=== PATIENT | female | born 1935 | race Caucasian/White ===

== ENCOUNTER 2024-06-23 11:14 | Outpatient (REF) | payer MEDICARE, SELFPAY ==
[2024-06-23 11:59] LABS: Chloride* 97 mmol/L (96-114); Potassium* 3.5 mmol/L (3.6-5.1); Sodium* 138 mmol/L (135-149)
[2024-06-23 12:02] LABS: Anion Gap 5 mEq/L (7-15); Blood Urea Nitrogen* 35 mg/dL (7-30); Calcium* 9.7 mg/dL (8.4-10.6); Carbon Dioxide* 36 mmol/L (20-32); Creatinine* 0.8 mg/dL (0.5-1.5); Estimated Glomerular Filt Rate 71 ml/min; Glucose* 108 mg/dL (60-115)
[2024-06-23 12:04] LABS: Hemoglobin A1C* 5.8 % (0-5.6)
== END 2024-06-23 11:15 | disposition home or self-care (01) ==
LOC: NPINS 11:14
PROVIDERS: PCP Family Medicine; Visit Provider Family Medicine
DX: E87.6 Hypokalemia (principal); R73.03 Prediabetes
CPT/HCPCS: 80048; 83036

== ENCOUNTER 2024-09-03 11:36 | Outpatient (REF) | payer MEDICARE, SELFPAY ==
[2024-09-03 12:25] LABS: Chloride* 98 mmol/L (96-114); Potassium* 3.5 mmol/L (3.6-5.1); Sodium* 139 mmol/L (135-149)
[2024-09-03 12:28] LABS: Anion Gap 8 mEq/L (7-15); Blood Urea Nitrogen* 28 mg/dL (7-30); Carbon Dioxide* 33 mmol/L (20-32); Creatinine* 0.7 mg/dL (0.5-1.5); Estimated Glomerular Filt Rate 83 ml/min; Glucose* 118 mg/dL (60-115)
[2024-09-03 12:29] LABS: Calcium* 9.5 mg/dL (8.4-10.6)
== END 2024-09-03 11:37 | disposition home or self-care (01) ==
LOC: NPINS 11:36
PROVIDERS: PCP Family Medicine; Visit Provider Nurse Practitioner Gerontology
DX: E87.6 Hypokalemia (principal)
CPT/HCPCS: 80048

== ENCOUNTER 2024-09-11 09:38 | Outpatient (REF) | payer MEDICARE, SELFPAY ==
[2024-09-11 10:48] LABS: Basophils Absolute Auto 0.03 K/uL (0.00-0.30); Basophils Percent Auto 0.3 % (0.0-3.0); Eosinophils Absolute Auto 0.19 K/uL (0.00-0.50); Eosinophils Percent Auto 1.8 % (0.0-7.0); Hematocrit 40.1 % (33.0-51.0); Hemoglobin* 12.9 gm/dL (12.0-16.0); Immature Granulocytes Abs Auto 0.02 K/uL (0.00-0.30); Immature Granulocytes Pct Auto 0.2 %; Lymphocytes Percent Auto 17.4 % (20-44); Mean Corpuscular HGB Conc 32 gm/dL (32-36); Mean Corpuscular Hemoglobin 30 pg (26-34); Mean Corpuscular Volume 93 fL (80-100); Monocytes Percent Auto 6.3 % (0.0-11.0); Platelet Count* 483 K/uL (140-440); RDW Coefficient of Variation % 14.5 % (11.5-15.5); Red Blood Count 4.33 m/uL (4.00-5.20); White Blood Count* 10.33 K/uL (4.50-11.00)
[2024-09-11 10:52] LABS: Slide Review Reflex No
== END 2024-09-11 09:39 | disposition home or self-care (01) ==
LOC: NPINS 09:38
PROVIDERS: PCP Nurse Practitioner Gerontology; Visit Provider Nurse Practitioner Gerontology
DX: R11.10 Vomiting, unspecified (principal)
CPT/HCPCS: 85025

== ENCOUNTER 2024-11-25 18:16 | Outpatient (REF) | payer MEDICARE, SELFPAY ==
[2024-11-25 18:39] LABS: Bilirubin Urine Negative (Negative); Blood Urine Trace-intact (Negative); Color Urine Yellow (Yellow); Glucose Urine Negative (Negative); Ketones Urine Negative (Negative); Leukocyte Esterase Urine 1+ (Negative); Nitrite Urine Positive (Negative); Protein Urine 1+ (Negative); pH Urine 5.5 (5.0-8.5)
[2024-11-25 18:40] LABS: Appearance Urine Slightly Cloudy (Clear)
[2024-11-25 18:57] LABS: Bacteria Urine Many; Squamous Epithelial Cell Urine Few (None-Few)
== END 2024-11-25 18:17 | disposition home or self-care (01) ==
LOC: NPINS 18:16
PROVIDERS: Visit Provider Nurse Practitioner Gerontology
DX: R31.9 Hematuria, unspecified (principal)
CPT/HCPCS: 81001; 87086

== ENCOUNTER 2025-01-03 10:41 | Outpatient (CLI) | payer MEDICARE, SELFPAY ==
[2025-01-03 11:45] LABS: Appearance Urine Slightly Cloudy (Clear); Bilirubin Urine Negative (Negative); Blood Urine 2+ (Negative); Color Urine Yellow (Yellow); Glucose Urine Negative (Negative); Ketones Urine Negative (Negative); Leukocyte Esterase Urine 1+ (Negative); Nitrite Urine Positive (Negative); Protein Urine 2+ (Negative); Specific Gravity Urine 1.025 (1.000-1.030); Urobilinogen Urine 0.2 (0.2-1.0); pH Urine 6.5 (5.0-8.5)
[2025-01-03 11:59] LABS: Bacteria Urine Many; Squamous Epithelial Cell Urine Many (None-Few); WBC Urine 25-50 (0-5)
== END 2025-01-03 10:42 | disposition home or self-care (01) ==
LOC: LAB 10:45 → NPINS 11:17
PROVIDERS: Visit Provider Family Medicine
DX: R31.9 Hematuria, unspecified (principal)
CPT/HCPCS: 81001; 81003; 87086

== ENCOUNTER 2025-04-01 20:31 | Outpatient (REF) | payer MEDICARE, SELFPAY ==
[2025-04-01 20:58] LABS: Appearance Urine Clear (Clear)
--- OUTSIDE RECORDS SUMMARY | 2025-04-02 00:17 | XMS_ITS | Clinical Summary ---
Author Organization [facility] Address [address] [place] [address] Care Team Providers Care Nutrition Program Instructor Name Role Phone Hina Dwyer MD Primary Care Provider [phone] Source Comments [facility],non-[facility] Affiliates and Associated Physician Practices is amultiple site organization consisting of ambulatory clinics and hospital sitesin [place], [place], [place] and [place]. This disclosure is being madepursuant to the Care Everywhere program and may not contain all information available regarding this patient. Last updated 18.[facility] Allergies Active Allergy Reactions Criticality Noted Date Comments Amoxicillin-Pot Clavulanate Urticaria Medium 09/03/20 11 (abstracted from [facility] Everywhere) Penicillins 09/03/2011 03/24/93 Sulfa Antibiotics Rash Medium 03/05/2024 Medications * Be aware that medications may not be up to date on this document. Alwaysverify current medications with the patient. losartan (Cozaar) 25 MG tabletIndication s:Hypertension Take 1 (one) tablet by mouth once daily 90 tablet 3 4 Active hydroCHLOROthiaz hector (Hydrodiuril) 25 MG tabletIndication s:Edema Take 1 (one) tablet by mouth once daily 90 tablet 4 4 Active nystatin (Mycostatin) 340992 UNIT/GM powderIndication s:Cutaneous Candidiasis Apply to buttocks and groin 3 times daily Reasons: Skin Infection due to Nikky Yeast 4 Active Cholecalciferol (Vitamin D) 50 MCG (1999) capsuleIndicatio ns:Hypovitaminos is D Take 1 (one) capsule by mouth once daily 30 capsule 4 Active Active Problems Problem Noted Date Diagnosed Date Hypokalemia 03/18/2024 Weakness 03/18/2024 Dependent edema 02/28/2024 Age-related osteoporosis wit hout current pathological fracture 01/11/2022 Overview (02/25/2024): BMD 12/29/21 Vascular dementia without behavioral disturbance 02/01/2021 Overview (02/25/2024): 04/19/21 CT scan brain without contrast for w/u dementia 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 (AF LURIA, FLUZONE TRIVALENT; 6MO+) (IIV3) 06/27/2016,06/23/2015,06/22/2014,2011,06/05/2011,06/23/2010,07/19/2004 COVID PFIZER BIVALENT 12Y+ 30mcg/0.3ML 07/05/2022 Covid Pfizer primary Monoval ent 12+ yr 0.3ml 12/27/2021 Covid Pfizer primary monoval ent 12+ yr 0.3mL Purple cap 12/22/2020,12/01/2020 FLU VACCINE TRI IIV3 SPLIT I M (FLUVIRIN) 06/19/2010,07/23/2008,07/18/2007,2004 INFLUENZA [id number], HISTORIC VACCINE 07/07/2009 INFLUENZA VACCINE 07/24/2002 INFLUENZA VACCINE, ADJUVANTE D, QUADR. (FLUAD QUADRIVALENT; 65Y+) (AIIV4) 07/22/2023,07/05/2022 INFLUENZA VACCINE, HIGH-DOSE , QUADR. (FLUZONE HIGH-DOSE QUADRIVALENT; 65Y+), 0.7 ML (HD-IIV4) 06/15/2021 INFLUENZA VACCINE, QUADR. (A FLURIA, FLUZONE QUADRIVALENT; 6MO+) (IIV4) 06/16/2019 INFLUENZA VACCINE, QUADR. (F LUZONE; FLULAVAL; FLUARIX; AFLURIA QUADRIVALENT; 6MO+), 0.5 ML (IIV4) 06/17/2018,07/02/2017,06/22/2013 INFLUENZA VACCINE, TRIV. (FL UZONE; FLULAVAL; FLUARIX; AFLURIA TRIVALENT; 6MO+), 0.5 ML (IIV3) 06/21/2009 PNEUMOCOCCAL POLYSAC, ADULT 10/08/2016 Pneumococcal Pcv13 Conj 10/03/2015 TD (AGE 7-ADULT) 08/21/2007 ZOSTER VACCINE, LIVE 01/17/2012 iNFLUENZA VACCINE, RECOM-SHARP, QUADR. (FLUBLOCK QUADRIVALENT; 18Y+) (RIV4) 06/17/2018,07/02/2017,06/27/2016,2014,06/22/2014,06/22/2013 Family History Medical History Relation Name Comments Cancer - Breast Aunt maternal None Known Brother Status: d Alcohol abuse Daughter 1 recovering alc oholic Cancer Daughter 1 at age 35 None Known Daughter 1 Status: Alive None Known Daughter 2 Status: d None Known Daughter 3 Status: Alive None Known Daughter 4 Status: Alive Tuberculosis Father at age 41; Status: Cancer - Stomach Mother Status: Dec eased Alzheimer's Disease Sister 1 Diabetes Sister 1 Heart Disease Sister 1 None Known Sister 1 Status: Alive None Known Sister 2 Status: Alive None Known Sister 3 Status: Alive None Known Sister 4 Status: Alive Allergies Son None Known Son Status: Alive Relation Name Status Comments Aunt Brother Daughter 1 Daughter 2 Daughter 3 Daughter 4 Father Mother Sister 1 Sister 2 Sister 3 Sister 4 Son Social History Tobacco Use Types Packs/Day Years Used Date Smoking Tobacco: Never Passive Smoke Exposure: Never Smokeless Tobacco: Never Alcohol Use Standard Drinks/Week Comments No 0 (1 standard drink = 0.6 oz pur e alcohol) OASIS D0700: Social Isolation Answer Da te Recorded Frequency of experiencing loneliness or isolatio n Rarely 04/03/2024 OASIS A1250: Transportation Answer Date Recorded Lack of Transportation (Medical) No 04/03/2024 Lack of Transportation (Non-Medical) No 04/03/2024 Patient Unable or Declines to Respond No 04/03/2024 OASIS B1300: Health Literacy Answer Ean e Recorded Frequency of needing help to read materials from doctor or pharmacy Always 04/03/2024 AUDIT-C Answer Date Recorded Q1: How often do you have a drink containing alcohol? Never 03/17/2024 Q2: How many drinks containi ng alcohol do you have on a typical day when you are drinking? Patient does not drink Q3: How often do you have si x or more drinks on one occasion? Never 03/17/2024 Overall Financial Resource Strain (CARDIA) Answe r Date Recorded How hard is it for you to pa y for the very basics like food, housing, medical care, and heating? Not hard at all 03/17/2024 [facility] [place] [facility] Occupat ional Health - Occupational Stress Questionnaire Answer Date Recorded Do you feel stress - tense, restless, nervous, or anxious, or unable to sleep at night because your mind is troubled all the time - these days? Not at all 03/17/2024 Hunger Vital Sign Answer Date Recorded Within the past 12 months, y ou worried that your food would run out before you got the money to buy more. Never true 03/17/20 24 Within the past 12 months, t he food you bought just didn't last and you didn't have money to get more. Never true 03/17/2024 PRAPARE - Transportation Answer Date Re corded In the past 12 months, has l ack of transportation kept you from medical appointments or from getting medications? No 02/22 In the past 12 months, has l ack of transportation kept you from meetings, work, or from getting things needed for daily living? No 03/17/2024 Housing Stability Vital Sign Answer Ean e Recorded In the last 12 months, was t here a time when you were not able to pay the mortgage or rent on time? No 03/17/2024 In the last 12 months, how many places have you lived? 1 03/17/2024 In the last 12 months, was t here a time when you did not have a steady place to sleep or slept in a detention (including now)? No 03/17/2024 Comments No Sex and Gender Information Value Date Recorded Sex Assigned at Not on file Legal Sex Female 9:52 PM CDT Gender Identity Not on file Sexual Orientation Not on file Last Filed Vital Signs Vital Sign Reading Time Taken Comments Blood Pressure 130/70 04/03/2024 12:44 PM CDT Pulse 71 04/03/2024 12:44 PM CDT Temperature 36.7 C (98.1 F) 04/03/2024 12:44 PM CDT Respiratory Rate 16 04/03/2024 12:44 PM CDT Oxygen Saturation 97% 04/03/2024 12:44 PM CDT Inhaled Oxygen Concentration - - Weight 53.1 kg (117 lb) 03/24/2024 11:53 AM CDT Height 157.5 cm (5' 2) 03/24/2024 11:53 AM CDT Body Mass Index 21.4 03/24/2024 11:53 AM CDT Plan of Treatment Health Maintenance Due Date Last Done Comments HIB VACCINE (1 of 1 - Risk 1-dose series) 12/30/1936 MENINGOCOCCAL GROUPS A/C/Y/W VACCINE (1 - Risk 2-dose series) 1937 MENINGOCOCCAL (Group B) VACCINE SHARED DECISION-MAKING (1 of 4 - Increased Risk) 1945 ZOSTER VACCINE (2 of 3) 03/13/2012 01/17/2012 DTAP/TDAP/TD VACCINES (2 - Td or Tdap) 08/21/2017 08/21/2007 DIABETES RETINOPATHY SCREENING 02/28/2024 DIABETES-FOOT EXAM WITH MONOFILAMENT 02/28/2024 COVID-19 VACCINE ( season) 2024 07/05/2022, 12/27/2021, 07/04/2021, Additional history exists DIABETES-HGB A1C 08/21/2024 02/19/2024, 07/05/2023 DEPRESSION SCREENING 09/23/2024 11/18/2018 MEDICARE AWV CALENDAR YEAR 2024 11/18/2018 INFLUENZA VACCINE (#1) 2025 , 07/05/2022, 06/15/2021, Additional history exists Respiratory Syncytial Virus (RSV) Vaccine Pt: or over 60 yrs (1 - 1-dose 75+ series) 02/27/2026 Postponed from 2010 (Insurance Coverage) PNEUMOCOCCAL VACCINE 50+ Completed 10/08/2016, 09/23 BONE DENSITY TESTING Completed 12/29/2021 HEPATITIS B VACCINE Aged Out No longe r eligible based on patient's age to complete this topic HPV VACCINE Aged Out No longer eligi ble based on patient's age to complete this topic Insurance MANAGED MEDICARE ADV [facility] MANAGED MEDICARE ADV Advance Directives Documents on File Type Date Recorded Patient Floor Manager Expl anation Healthcare Power of Rehabilitation Therapy Aide 04/02/2024 10:49 AM SIGNED: 08/12/2019 Healthcare POA Activation 03/02/2024 11:16 AM DATE SIGNED 02/01/21 Healthcare Power of Rehabilitation Therapy Aide 03/07/2016 DURABLE POWER OF BOTTOM SCRUBBER FOR HEALTHCARE Healthcare Power of Rehabilitation Therapy Aide 11/23/2014 11:24 AM DATE SIGNED 11/11/14 Healthcare Power of Rehabilitation Therapy Aide 12/04/2011 1:06 PM DATED 11/21/11 * DNR - IF PULSELESS NO CPR, NO SHOCK (Latest Code Status on File) Date Activated Date Inactivated Comments 03/17/2024 4:09 PM 03/20/2024 8:54 PM Question Answer Comments : DO NOT discontinue a ny active orders without asking attending physician. Care Teams Nutrition Program Instructor Relationship Specialty Start Date End Date Hina Dwyer MD [address] [place] [address] [phone] PCP - General Family Medicine 03/05/24
== END 2025-04-01 20:32 | disposition home or self-care (01) ==
LOC: NPINS 20:31
PROVIDERS: Visit Provider Nurse Practitioner Gerontology
DX: R31.9 Hematuria, unspecified (principal); N39.0 Urinary tract infection, site not specified
CPT/HCPCS: 81001; 81003; 87086

== ENCOUNTER 2025-06-08 10:13 | Outpatient (REF) | payer MEDICARE, SELFPAY ==
[2025-06-08 11:24] LABS: Chloride* 96 mmol/L (96-114); Sodium* 136 mmol/L (135-149)
[2025-06-08 11:25] LABS: Potassium* 3.4 mmol/L (3.6-5.1)
[2025-06-08 11:26] LABS: Hematocrit* 38.6 % (33.0-51.0); Hemoglobin* 12.5 gm/dL (12.0-16.0); Immature Granulocytes Pct Auto 0.2 %; Mean Corpuscular HGB Conc 32 gm/dL (32-36); Mean Corpuscular Hemoglobin 30 pg (26-34); Mean Corpuscular Volume 91 fL (80-100); RDW Coefficient of Variation % 14.1 % (11.5-15.5); Red Blood Count* 4.24 m/uL (4.00-5.20); White Blood Count* 15.73 K/uL (4.50-11.00)
[2025-06-08 11:27] LABS: Blood Urea Nitrogen* 40 mg/dL (7-30); Creatinine* 1.0 mg/dL (0.5-1.5); Estimated Glomerular Filt Rate 54 ml/min
[2025-06-08 11:28] LABS: Anion Gap 7 mEq/L (7-15); Calcium* 10.0 mg/dL (8.4-10.6); Carbon Dioxide* 33 mmol/L (20-32); Glucose* 116 mg/dL (60-115)
[2025-06-08 11:31] LABS: Immature Granulocytes Abs Auto 0.00 K/uL (0.00-0.30); Lymphocytes Absolute Auto 1.90 K/uL (0.90-2.90); Slide Review Reflex No
--- OUTSIDE RECORDS SUMMARY | 2025-06-09 00:19 | XMS_ITS | Clinical Summary ---
Author Organization [facility] Address [address] [place] [address] Care Team Providers Care Instrumentation Technologist Name Role Phone Hina Dwyer MD Primary Care Provider [phone] Source Comments [facility],non-[facility] Affiliates and Associated Physician Practices is amultiple site organization consisting of ambulatory clinics and hospital sitesin [place], [place], [place] and [place]. This disclosure is being madepursuant to the Care Everywhere program and may not contain all information available regarding this patient. Last updated 18.[facility] Allergies Active Allergy Reactions Criticality Noted Date Comments Amoxicillin-Pot Clavulanate Urticaria Medium 09/03/20 11 (abstracted from [facility] Everywhere) Penicillins 09/03/2011 03/24/93 Sulfa Antibiotics Rash [...] 90 tablet 4 4 Active nystatin (Mycostatin) 914653 UNIT/GM powderIndication s:Cutaneous Candidiasis Apply to buttocks [...] IIV3 SPLIT I M (FLUVIRIN) 06/19/2010,07/23/2008,07/18/2007,2004 INFLUENZA [id number], HISTORIC VACCINE 07/07/2009 INFLUENZA VACCINE 07/24/2002 INFLUENZA [...] and heating? Not hard at all 03/17/2024 [facility] [place] of Occupat ional Health - Occupational Stress [...] place to sleep or slept in a fpc (including now)? No 03/17/2024 Comments No Sex [...] SCREENING 02/28/2024 DIABETES-FOOT EXAM WITH MONOFILAMENT 02/28/2024 DIABETES-HGB A1C 08/21/2024 02/19/2024, 07/05/2023 DEPRESSION SCREENING 09/23/2024 11/18/2018 MEDICARE AWV CALENDAR YEAR 2024 11/18/2018 COVID-19 VACCINE ( season) 2025 07/05/2022, 12/27/2021, 07/04/2021, Additional history exists INFLUENZA VACCINE (#1) 2025 , 07/05/2022, 06/15/2021, [...] complete this topic Insurance MANAGED MEDICARE ADV [facility] MANAGED MEDICARE ADV Advance Directives Documents on File Type Date Recorded Patient Solar Photovoltaic Crew Lead Expl anation Healthcare Power of Integration Assistant 04/02/2024 10:49 AM SIGNED: 08/12/2019 Healthcare POA Activation 03/02/2024 11:16 AM DATE SIGNED 02/01/21 Healthcare Power of Integration Assistant 03/07/2016 DURABLE POWER OF MORTGAGE PROTECTION SPECIALIST FOR HEALTHCARE Healthcare Power of Integration Assistant 11/23/2014 11:24 AM DATE SIGNED 11/11/14 Healthcare Power of Integration Assistant 12/04/2011 1:06 PM DATED 11/21/11 * DNR - IF PULSELESS NO CPR, NO SHOCK (Latest Code Status on File) Date Activated Date Inactivated Comments 03/17/2024 4:09 PM 03/20/2024 8:54 PM Question Answer Comments : DO NOT discontinue a ny active orders without asking attending physician. Care Teams Instrumentation Technologist Relationship Specialty Start Date End Date Hina Dwyer MD [address] [place] [address] [phone] PCP - General Family Medicine 03/05/24
== END 2025-06-08 10:14 | disposition home or self-care (01) ==
LOC: NPINS 10:13
PROVIDERS: Visit Provider Family Medicine
DX: R53.83 Other fatigue (principal)
CPT/HCPCS: 80048; 85025

== ENCOUNTER 2025-06-26 09:20 | Outpatient (CLI) | payer MEDICARE, SELFPAY | END 2025-06-26 09:21 | disposition home or self-care (01) | LOC: AMB 06-29 15:04 | PROVIDERS: Visit Provider Emergency Medicine Emergency Medical Services | DX: R04.0 Epistaxis (principal) | CPT/HCPCS: A0425; A0428; A0429 ==

== ENCOUNTER 2025-06-26 09:34 | Emergency (ER) | payer MEDICARE, SELFPAY ==
--- OUTSIDE RECORDS SUMMARY | 2025-06-26 09:35 | XMS_ITS | Clinical Summary ---
Author Organization [facility] Address [address] [place] [address] Care Team Providers Care Tape Control Skin Or Spar Mill Operator Name Role Phone Hina Dwyer MD Primary Care Provider [phone] Source Comments [facility],non-[facility] Affiliates and Associated Physician Practices is amultiple site organization consisting of ambulatory clinics and hospital sitesin [place], [place], [place] and [place]. This disclosure is being madepursuant to the Care Everywhere program and may not contain all information available regarding this patient. Last updated 18.[facility] Allergies Active Allergy Reactions Criticality Noted Date Comments Amoxicillin-Pot Clavulanate Urticaria Medium 09/03/20 11 (abstracted from [facility]) Penicillins 09/03/2011 03/24/93 Sulfa Antibiotics Rash [...] 90 tablet 4 4 Active nystatin (Mycostatin) 975422 UNIT/GM powderIndication s:Cutaneous Candidiasis Apply to buttocks [...] IIV3 SPLIT I M (FLUVIRIN) 06/19/2010,07/23/2008,07/18/2007,2004 INFLUENZA [id number], HISTORIC VACCINE 07/07/2009 INFLUENZA VACCINE 07/24/2002 INFLUENZA [...] and heating? Not hard at all 03/17/2024 [facility] [place] of Occupat ional Health - Occupational Stress [...] place to sleep or slept in a halfway (including now)? No 03/17/2024 Comments No Sex [...] complete this topic Insurance MANAGED MEDICARE ADV [facility] MANAGED MEDICARE ADV Advance Directives Documents on File Type Date Recorded Patient Proof Coin Collector Expl anation Healthcare Power of Plant Taxonomist 04/02/2024 10:49 AM SIGNED: 08/12/2019 Healthcare POA Activation 03/02/2024 11:16 AM DATE SIGNED 02/01/21 Healthcare Power of Plant Taxonomist 03/07/2016 DURABLE POWER OF EVP OPERATIONS FOR HEALTHCARE Healthcare Power of Plant Taxonomist 11/23/2014 11:24 AM DATE SIGNED 11/11/14 Healthcare Power of Plant Taxonomist 12/04/2011 1:06 PM DATED 11/21/11 * DNR - IF PULSELESS NO CPR, NO SHOCK (Latest Code Status on File) Date Activated Date Inactivated Comments 03/17/2024 4:09 PM 03/20/2024 8:54 PM Question Answer Comments : DO NOT discontinue a ny active orders without asking attending physician. Care Teams Tape Control Skin Or Spar Mill Operator Relationship Specialty Start Date End Date Hina Dwyer MD [address] [place] [address] [phone] PCP - General Family Medicine 03/05/24
[2025-06-26 09:43] VITALS: BP 116/70; PULSE 75; RESP 16; TEMP 36.2; O2SAT 95
--- NOTE | 2025-06-26 10:07 | ED.EPISTAXIS ---
Review of Systems Status of ROS: Reports: 10 or more systems reviewed and unremarkable except as noted in History and below Narrative: Review of systems is limited because of dementia. Exam Narrative: Exam Narrative: Constitutional: Well-developed, well-nourished, no acute distress. HEENT: Normocephalic, atraumatic. Left nostril appears normal. Right nostril has no active bleeding but apparent source of bleeding is in the anterior septum area. No blood in the oropharynx. Neck: Normal range of motion. Nontender. Supple. Heart: Intact distal pulses. Lungs: No chest discomfort. No wheezes, rhonchi, or rales. Abdomen: Nontender. Back: Normal range of motion. Extremities: Normal range of motion. No injury. Skin: Intact. No rash. Warm. No erythema or pallor. Neurologic: No altered sensation. No weakness. Alert and oriented. Psychiatric: No suicidality. No anxiety or depression. No insomnia. Nursing notes and vitals signs are reviewed. Const: Vital Signs, click to edit/add: Vital Signs - 24 hr 06/26/25 09:43 Temperature 97.2 F L Pulse Rate [Pulse Oximeter] 75 Respiratory Rate 16 Blood Pressure [Ri ght Upper Arm] 116/70 Pulse Oximetry 95 Oxygen Delivery Me thod Room Air Course Vital Signs Vital signs: Initial Vital Signs Temperature 97.2 F L 06/26/25 09:43 Temperature Source Temporal Artery Scan 06/26/25 09:43 Pulse Rate 75 06/26/25 09:43 Respiratory Rate 16 06/26/25 09:43 Blood Pressure 116/70 06/26/25 09:43 Blood Pressure Mean 85 06/26/25 09:43 Blood Pressure Position Supine 06/26/25 09:43 Pulse Oximetry 95 06/26/25 09:43 Oxygen Delivery Method Room Air 06/26/25 09:43 Vital Signs Temperature 97.2 F L 06/26/25 09:43 Pulse Rate 75 06/26/25 09:43 Respiratory Rate 16 06/26/25 09:43 Blood Pressure 116/70 06/26/25 09:43 Pulse Oximetry 95 06/26/25 09:43 Oxygen Delivery Method Room Air 06/26/25 09:43 Temperature 97.2 F L 06/26/25 09:43 Pulse Rate 75 06/26/25 09:43 Respiratory Rate 16 06/26/25 09:43 Blood Pressure 116/70 06/26/25 09:43 Pulse Oximetry 95 06/26/25 09:43 Oxygen Delivery Method Room Air 06/26/25 09:43 Medications Administered Medications: Discontinued Medications Generic Name Dose Route Start Last Admin Trade Name Melodie PRN Reason Stop Dose Admin Oxymetazoline HCl 1 spray 06/26/25 10:06 06/26/25 10:12 Oxymetazoline 0.05% Nasal [place] NOSTRIL-R 06/26/25 10:07 1 spray ONCE ONE Administration MDM - Epistaxis MDM Narrative Medical decision making narrative: This patient comes in from a [facility] care facility because of recurrent nose bleeds here and there over the past few weeks. She does have some dry blood on her face but throughout the time of her visit here she has not had any active bleeding. I can see an area where she was bleeding from in her right nostril along the septum anteriorly. The patient did receive a dose of Afrin but we did not need to use a clamp for direct pressure as she is not currently bleeding. She is okay to be discharged back home. I did send a nasal clamp with her and instructed her how to attend to a rebleed if that should occur. She is not on any anticoagulants. She has normal vital signs. Discharge Plan Discharge Clinical Impression: Epistaxis Patient Disposition: Home w/ Parent or Adult Condition: Stable Additional Instructions: Continue current plans. If rebleeding occurs apply nasal clamp for direct pressure and leave the clamp in place for 10 or 15 minutes. Be very gentle with the nasal mucosa to allow for healing. Return if worsening. Prescriptions: No Action losartan 25 mg tablet 25 mg PO DAILY hydrochlorothiazide 25 mg tablet 25 mg PO DAILY estradiol 0.01 % (0.1 mg/gram) cream vaginal cholecalciferol (vitamin D3) 50 mcg (2,000 unit) tablet 50 mcg PO DAILY Follow Up/Referrals: Provider,Not a Local [Primary Care Provider, Family Practice] Stand Alone Forms: [employer] Info Instructions
[2025-06-26] MEDS: OXYMETAZOLINE 0.05% NASAL SPRAY 1 SPRAY NOSTRIL-R (10:12)
== END 2025-06-26 12:14 | disposition home or self-care (01) ==
PROVIDERS: Emergency Provider Emergency Medicine Emergency Medical Services
DX: R04.0 Epistaxis (principal)
CPT/HCPCS: 99282; 99283; 99284; A9270

== ENCOUNTER 2025-06-26 11:47 | Outpatient (CLI) | payer MEDICARE, SELFPAY | END 2025-06-26 11:48 | disposition home or self-care (01) | LOC: AMB 06-29 15:11 | PROVIDERS: Visit Provider Emergency Medicine Emergency Medical Services | DX: R04.0 Epistaxis (principal) ==

== ENCOUNTER 2025-07-06 11:07 | Outpatient (REF) | payer MEDICARE, SELFPAY ==
[2025-07-06 11:30] LABS: Appearance Urine Slightly Cloudy (Clear)
--- OUTSIDE RECORDS SUMMARY | 2025-07-07 00:14 | XMS_ITS | Clinical Summary ---
Author Organization [facility] Address [address] [place] [address] Care Team Providers Care Energy Efficiency Specialist Name Role Phone Hina Dwyer MD Primary Care Provider [phone] Source Comments [facility],non-[facility] Affiliates and Associated Physician Practices is amultiple site organization consisting of ambulatory clinics and hospital sitesin [place], [place], [place] and [place]. This disclosure is being madepursuant to the Care Everywhere program and may not contain all information available regarding this patient. Last updated 18.[facility] Allergies Active Allergy Reactions Criticality Noted Date Comments Amoxicillin-Pot Clavulanate Urticaria Medium 09/03/20 11 (abstracted from [facility] Everywhere) Penicillins 09/03/2011 03/24/93 Sulfa Antibiotics Rash [...] 90 tablet 4 4 Active nystatin (Mycostatin) 735249 UNIT/GM powderIndication s:Cutaneous Candidiasis Apply to buttocks [...] IIV3 SPLIT I M (FLUVIRIN) 06/19/2010,07/23/2008,07/18/2007,2004 INFLUENZA [id number], HISTORIC VACCINE 07/07/2009 INFLUENZA VACCINE 07/24/2002 INFLUENZA [...] and heating? Not hard at all 03/17/2024 [facility] [place] of Occupat ional Health - Occupational Stress [...] place to sleep or slept in a assisted (including now)? No 03/17/2024 Comments No Sex [...] complete this topic Insurance MANAGED MEDICARE ADV [facility] MANAGED MEDICARE ADV Advance Directives Documents on File Type Date Recorded Patient Change Number Operator Expl anation Healthcare Power of Field Consultant 04/02/2024 10:49 AM SIGNED: 08/12/2019 Healthcare POA Activation 03/02/2024 11:16 AM DATE SIGNED 02/01/21 Healthcare Power of Field Consultant 03/07/2016 DURABLE POWER OF PROGRAM SCHEDULE CLERK FOR HEALTHCARE Healthcare Power of Field Consultant 11/23/2014 11:24 AM DATE SIGNED 11/11/14 Healthcare Power of Field Consultant 12/04/2011 1:06 PM DATED 11/21/11 * DNR - IF PULSELESS NO CPR, NO SHOCK (Latest Code Status on File) Date Activated Date Inactivated Comments 03/17/2024 4:09 PM 03/20/2024 8:54 PM Question Answer Comments : DO NOT discontinue a ny active orders without asking attending physician. Care Teams Energy Efficiency Specialist Relationship Specialty Start Date End Date Hina Dwyer MD [address] [place] [address] [phone] PCP - General Family Medicine 03/05/24
== END 2025-07-06 11:08 | disposition home or self-care (01) ==
LOC: NPINS 11:07
PROVIDERS: Visit Provider Nurse Practitioner Gerontology
DX: R31.9 Hematuria, unspecified (principal)
CPT/HCPCS: 81001; 87086; 87186

== ENCOUNTER 2025-07-07 18:57 | Emergency (ER) | payer MEDICARE, SELFPAY ==
[2025-07-07 19:22] VITALS: BP 170/101; PULSE 97; RESP 18; TEMP 36.2; O2SAT 98; BMI 25.4
--- NOTE | 2025-07-07 19:42 | ED.EPISTAXIS ---
Review of Systems Status of ROS: Reports: unobtainable due to mental status Exam Narrative: Exam Narrative: Constitutional: Well-developed, well-nourished, no acute distress. HEENT: Normocephalic, atraumatic. Left nostril appears normal. Right nostril has a small amount of blood in the anterior aspect. Posteriorly there is no sign of bleeding. Neck: Normal range of motion. Nontender. Supple. Heart: Intact distal pulses. Lungs: No chest discomfort. No wheezes, rhonchi, or rales. Abdomen: Nontender. Back: Normal range of motion. Extremities: Normal range of motion. No injury. Skin: Intact. No rash. Warm. No erythema or pallor. Neurologic: No altered sensation. No weakness. Alert and oriented. Psychiatric: No suicidality. No anxiety or depression. No insomnia. Nursing notes and vitals signs are reviewed. Const: Vital Signs, click to edit/add: Vital Signs - 24 hr 07/07/25 19:22 Temperature 97.2 F L Pulse Rate [Pulse Oximeter] 97 Respiratory Rate 18 Blood Pressure [Le ft Upper Arm] 170/101 H Pulse Oximetry 98 Oxygen Delivery Me thod Room Air Course Vital Signs Vital signs: Initial Vital Signs Temperature 97.2 F L 07/07/25 19:22 Temperature Source Temporal Artery Scan 07/07/25 19:22 Pulse Rate 97 07/07/25 19:22 Respiratory Rate 18 07/07/25 19:22 Blood Pressure 170/101 H 07/07/25 19:22 Blood Pressure Mean 124 H 07/07/25 19:22 Blood Pressure Position Supine 07/07/25 19:22 Pulse Oximetry 98 07/07/25 19:22 Oxygen Delivery Method Room Air 07/07/25 19:22 Vital Signs Temperature 97.2 F L 07/07/25 19:22 Pulse Rate 97 07/07/25 19:22 Respiratory Rate 18 07/07/25 19:22 Blood Pressure 170/101 H 07/07/25 19:22 Pulse Oximetry 98 07/07/25 19:22 Oxygen Delivery Method Room Air 07/07/25 19:22 Temperature 97.2 F L 07/07/25 19:22 Pulse Rate 97 07/07/25 19:22 Respiratory Rate 18 07/07/25 19:22 Blood Pressure 170/101 H 07/07/25 19:22 Pulse Oximetry 98 07/07/25 19:22 Oxygen Delivery Method Room Air 07/07/25 19:22 MDM - Epistaxis MDM Narrative Medical decision making narrative: This patient comes in with her daughter because of epistaxis. She has dementia with residence in a memory care facility. She has had occasions of epistaxis and was seen by me a couple weeks ago with same symptoms. Currently she is not bleeding at all. She is not on any anticoagulants. I did have discussion with the patient's daughter regarding what to do if rebleeding occurs. The patient was provided with a nasal clamp. I also advised using some kind of a mole E and such as bacitracin or Vaseline to gently lubricate the nostril at night time. Discharge Plan Discharge Clinical Impression: Epistaxis Patient Disposition: Home w/ Parent or Adult Condition: Stable Additional Instructions: If rebleeding occurs apply nasal clamp as instructed. For prevention it is recommended also to very gently use a Q-tip to apply some type of a mole E and such as bacitracin or Vaseline to keep the nose moist at nighttime. Prescriptions: No Action losartan 25 mg tablet 25 mg PO DAILY hydrochlorothiazide 25 mg tablet 25 mg PO DAILY estradiol 0.01 % (0.1 mg/gram) cream vaginal cholecalciferol (vitamin D3) 50 mcg (2,000 unit) tablet 50 mcg PO DAILY Follow Up/Referrals: Provider,Not a Local [Primary Care Provider, Family Practice] Stand Alone Forms: MyHealth Info Instructions
[2025-07-07 20:07] VITALS: BP 154/85; PULSE 89; RESP 18; TEMP 36.7; O2SAT 98
[2025-07-07 20:12] VITALS: BP 154/85; PULSE 89; RESP 18; TEMP 36.7
== END 2025-07-07 20:12 | disposition home or self-care (01) ==
LOC: ED 19:56
PROVIDERS: Emergency Provider Emergency Medicine Emergency Medical Services; PCP Family Medicine
DX: R04.0 Epistaxis (principal)
CPT/HCPCS: 99282; 99284

== ENCOUNTER 2025-07-10 23:24 | Outpatient (CLI) | payer MEDICARE, SELFPAY | END 2025-07-10 23:25 | disposition home or self-care (01) | LOC: AMB 07-15 00:08 | PROVIDERS: PCP Family Medicine; Visit Provider Family Medicine | DX: R04.0 Epistaxis (principal) | CPT/HCPCS: A0425; A0429 ==

== ENCOUNTER 2025-07-10 23:41 | Emergency (ER) | payer MEDICARE, SELFPAY ==
[2025-07-10 23:47] VITALS: BP 171/113; PULSE 74; RESP 18; TEMP 36.3; O2SAT 97; BMI 25.4
--- NOTE | 2025-07-10 23:47 | ED.GENADULT ---
HPI - General Adult General Time Seen by Provider: 23:47 Date Seen: 07/10/25 Chief complaint: Epistaxis/Nosebleed Stated complaint: nosebleed Time Seen by Provider: 07/10/25 23:46 Source: patient and EMS Mode of arrival: ambulatory Limitations: no limitations History of Present Illness HPI narrative: 89y/o female who presents with nosebleed. Patient presents from [facility], she says she does not know in the nose bleeds started and says she has never had this before, however review records shows the patient has been seen twice in the last 2 weeks for nose bleeds. Denies any injury. Related Data Home Medications ?Medication ?Instructions ?Recorded ?Confirmed cholecalciferol (vitamin D3) 50 50 mcg PO DAILY 06/26/25 06/26/25 mcg (2,000 unit) tablet estradiol 0.01% (0.1 mg/gram) vaginal 06/26/25 vaginal cream hydrochlorothiazide 25 mg tablet 25 mg PO DAILY 06/26/25 06/26/25 losartan 25 mg tablet 25 mg PO DAILY 06/26/25 06/26/25 Previous Rx's ?Medication ?Instructions ?Recorded cefdinir 300 mg capsule 300 mg PO BID 5 days #10 caps 07/11/25 Allergies Allergy/AdvReac Type Severity Reaction Status Date / Time amoxicillin (From Augmentin) Allergy Unknown Verified 06/26/25 09:53 clavulanic acid (From Allergy Unknown Verified 06/26/25 09:53 Augmentin) Penicillins Allergy Unknown Verified 06/26/25 09:53 Sulfa (Sulfonamide Allergy Unknown Verified 06/26/25 09:53 Antibiotics) PFSH PFSH Social History Smoking Status: Never smoker Do you use any of these nicotine containing products: None Second hand tobacco smoke exposure: No How often do you have a drink containing alcohol: never How often do you have six or more drinks on one occasion: Never AUDIT-C Alcohol total score: 0 Non-prescribed substance use: denies use service: No Exam Narrative: Exam Narrative: General: well nourished , NAD Head: Atraumatic and normocephalic ENT: Blood in the nares bilaterally, nasal clamp in place Eyes: Conjunctiva clear, pupils are equal reactive, external ocular motions are intact Neck: Full spontaneous range of motion of the neck Lungs: No respiratory distress Musculoskeletal: No tenderness or deformity, bilateral lower extremity edema Neurologic: No gross focal neurologic deficits Skin: No rashes Psych: Mood and affect are appropriate Const: Vital Signs, click to edit/add: Vital Signs - 24 hr 07/10/25 23:47 Temperature 97.3 F L Pulse Rate [Pulse Oximeter] 74 Respiratory Rate 18 Blood Pressure [Ri ght Upper Arm] 171/113 H Pulse Oximetry 97 Oxygen Delivery Me thod Room Air Course Course ED Course: Reviewed to prior notes from June 26 and July 07 both of which were for nose bleed. On June 26, patient received Afrin and nasal clamp. On July 07 she again had a nasal clamp placed. No packing or cautery and either visit. Patient presents today with complaint nose bleed. Unclear when this started, patient is a poor historian due to dementia. She is not on blood thinners. Reevaluation(s) Time of Reevaluation #1: 00:49 Reevaluation #1: Epistaxis management- nasal clamp was removed and clots were cleared from the knee right nostril by having the patient blow her nose. A gauze soaked with lidocaine 1% with epinephrine mixed with phenylephrine was placed in the nostril and left in place for 10 minutes. This was removed and patient continued to have fairly brisk bleeding. The nasal septum was examined and there was active pulsatile bleeding. The area was extensively cauterized with silver nitrate hand bleeding was controlled. A 5.5 cm rhino rocket was placed. Patient tolerated this well and is stable for discharge Vital Signs Vital signs: Initial Vital Signs Temperature 97.3 F L 07/10/25 23:47 Temperature Source Temporal Artery Scan 07/10/25 23:47 Pulse Rate 74 07/10/25 23:47 Respiratory Rate 18 07/10/25 23:47 Blood Pressure 171/113 H 07/10/25 23:47 Blood Pressure Mean 132 H 07/10/25 23:47 Blood Pressure Position Supine 07/10/25 23:47 Pulse Oximetry 97 07/10/25 23:47 Oxygen Delivery Method Room Air 07/10/25 23:47 Vital Signs Temperature 97.3 F L 07/10/25 23:47 Pulse Rate 74 07/10/25 23:47 Respiratory Rate 18 07/10/25 23:47 Blood Pressure 171/113 H 07/10/25 23:47 Pulse Oximetry 97 07/10/25 23:47 Oxygen Delivery Method Room Air 07/10/25 23:47 Temperature 97.3 F L 07/10/25 23:47 Pulse Rate 74 07/10/25 23:47 Respiratory Rate 18 07/10/25 23:47 Blood Pressure 171/113 H 07/10/25 23:47 Pulse Oximetry 97 07/10/25 23:47 Oxygen Delivery Method Room Air 07/10/25 23:47 Discharge Plan Discharge Clinical Impression: Epistaxis Patient Disposition: Home w/ Parent or Adult Condition: Stable Instructions: Nosebleed (ED) Additional Instructions: Follow-up with ENT in 5-7 days Nasal packing should be left in place. If this is not tolerable for the patient, deflate the balloon with a 10 mL syringe and gently remove. Antibiotics as prescribed. Activity Level: Activity as Tolerated Discharge Diet: Regular Prescriptions: New cefdinir 300 mg capsule 300 mg PO BID 5 Days Qty: 10 0RF No Action losartan 25 mg tablet 25 mg PO DAILY hydrochlorothiazide 25 mg tablet 25 mg PO DAILY estradiol 0.01 % (0.1 mg/gram) cream vaginal cholecalciferol (vitamin D3) 50 mcg (2,000 unit) tablet 50 mcg PO DAILY Follow Up/Referrals: Brigitte Gil MD [Primary Care Provider, Family Practice] Keshawn Kerr MD [Staff Physician, Ear, Nose, Throat] Referral Note: 5-7 days, nasal packing removal Stand Alone Forms: MyHealth Info Instructions Procedures Epistaxis Control Time Out Performed: Yes Nostril: Yes right Nose prepped with: Yes lidocaine and Yes phenylephrine Direct inspection: Yes anterior source identified Direct inspection method: Yes otoscope Clots removed by: Yes blowing nose Epistaxis treatment: Yes silver nitrate cautery and Yes inflatable pack Results of treatment: Yes bleeding controlled and Yes treatment well tolerated Estimated blood loss (if any): other (specify) (40mL) Complications: Yes none Conclusion: patient tolerated procedure
[2025-07-11] MEDS: OXYMETAZOLINE (AFRIN) SOAK 1 EACH TOPICAL (00:04)
== END 2025-07-11 01:27 | disposition home or self-care (01) ==
PROVIDERS: Emergency Provider Family Medicine; PCP Family Medicine
DX: R04.0 Epistaxis (principal)
CPT/HCPCS: 30901; 99283; 99284

== ENCOUNTER 2025-07-14 11:30 | Outpatient (REF) | payer MEDICARE, SELFPAY ==
[2025-07-14 12:33] LABS: Hematocrit* 27.0 % (33.0-51.0); Hemoglobin* 8.5 gm/dL (12.0-16.0); Immature Granulocytes Pct Auto 0.3 %; Mean Corpuscular HGB Conc 32 gm/dL (32-36); Mean Corpuscular Hemoglobin 30 pg (26-34); Mean Corpuscular Volume 94 fL (80-100); RDW Coefficient of Variation % 15.6 % (11.5-15.5); Red Blood Count* 2.88 m/uL (4.00-5.20); White Blood Count* 16.81 K/uL (4.50-11.00)
[2025-07-14 12:35] LABS: Immature Granulocytes Abs Auto 0.10 K/uL (0.00-0.30); Lymphocytes Absolute Auto 2.10 K/uL (0.90-2.90); Slide Review Reflex No
--- OUTSIDE RECORDS SUMMARY | 2025-07-15 00:13 | XMS_ITS | Clinical Summary ---
Author Organization [facility] Address [address] [place] [address] Care Team Providers Care Outside Salesperson Name Role Phone Hina Dwyer MD Primary Care Provider [phone] Source Comments [facility],non-[facility] Affiliates and Associated Physician Practices is amultiple site organization consisting of ambulatory clinics and hospital sitesin [place], [place], [place] and [place]. This disclosure is being madepursuant to the Care Everywhere program and may not contain all information available regarding this patient. Last updated 18.[facility] Allergies Active Allergy Reactions Criticality Noted Date Comments Amoxicillin-Pot Clavulanate Urticaria Medium 09/03/20 11 (abstracted from [facility] Everywhere) Penicillins 09/03/2011 03/24/93 Sulfa Antibiotics [...] 90 tablet 4 4 Active nystatin (Mycostatin) 529435 UNIT/GM powderIndication s:Cutaneous Candidiasis Apply to buttocks [...] IIV3 SPLIT I M (FLUVIRIN) 06/19/2010,07/23/2008,07/18/2007,2004 INFLUENZA [id number], HISTORIC VACCINE 07/07/2009 INFLUENZA VACCINE 07/24/2002 INFLUENZA [...] and heating? Not hard at all 03/17/2024 [facility] [place] of Occupat ional Health - Occupational Stress [...] place to sleep or slept in a snf (including now)? No 03/17/2024 Comments No Sex [...] DIABETES-FOOT EXAM WITH MONOFILAMENT 02/28/2024 DIABETES-HGB A1C 02/28/2024 DEPRESSION SCREENING 09/23/2024 11/18/2018 MEDICARE AWV CALENDAR [...] patient's age to complete this topic Insurance [id number] MANAGED MEDICARE ADV [facility] MANAGED MEDICARE ADV Advance Directives Documents on File Type Date Recorded Patient Receiving Lead Expl anation Healthcare Power of Outside Salesperson 04/02/2024 10:49 AM SIGNED: 08/12/2019 Healthcare POA Activation 03/02/2024 11:16 AM DATE SIGNED 02/01/21 Healthcare Power of Outside Salesperson 03/07/2016 DURABLE POWER OF VETERINARY MANAGER FOR HEALTHCARE Healthcare Power of Outside Salesperson 11/23/2014 11:24 AM DATE SIGNED 11/11/14 Healthcare Power of Outside Salesperson 12/04/2011 1:06 PM DATED 11/21/11 * DNR - IF PULSELESS NO CPR, NO SHOCK (Latest Code Status on File) Date Activated Date Inactivated Comments 03/17/2024 4:09 PM 03/20/2024 8:54 PM Question Answer Comments : DO NOT discontinue a ny active orders without asking attending physician. Care Teams Outside Salesperson Relationship Specialty Start Date End Date Hina Dwyer MD [address] [place] [phone] PCP - General Family Medicine 03/05/24
== END 2025-07-14 11:31 | disposition home or self-care (01) ==
LOC: NPINS 11:30
PROVIDERS: PCP Family Medicine; Visit Provider Nurse Practitioner Gerontology
DX: D72.829 Elevated white blood cell count, unspecified (principal); D68.2 Hereditary deficiency of other clotting factors
CPT/HCPCS: 85025; 85384

== ENCOUNTER 2025-08-11 08:58 | Outpatient (REF) | payer MEDICARE, SELFPAY ==
[2025-08-11 09:37] LABS: Hematocrit* 32.9 % (33.0-51.0); Hemoglobin* 10.2 gm/dL (12.0-16.0); Immature Granulocytes Pct Auto 0.1 %; Mean Corpuscular HGB Conc 31 gm/dL (32-36); Mean Corpuscular Hemoglobin 28 pg (26-34); Mean Corpuscular Volume 91 fL (80-100); RDW Coefficient of Variation % 14.6 % (11.5-15.5); Red Blood Count* 3.61 m/uL (4.00-5.20); White Blood Count* 14.38 K/uL (4.50-11.00)
[2025-08-11 09:38] LABS: Immature Granulocytes Abs Auto 0.00 K/uL (0.00-0.30); Lymphocytes Absolute Auto 2.00 K/uL (0.90-2.90); Slide Review Reflex No
[2025-08-11 09:41] LABS: Chloride* 93 mmol/L (96-114); Potassium* 3.6 mmol/L (3.6-5.1); Sodium* 138 mmol/L (135-149)
[2025-08-11 09:44] LABS: Anion Gap 11 mEq/L (7-15); Blood Urea Nitrogen* 37 mg/dL (7-30); Calcium* 9.6 mg/dL (8.4-10.6); Carbon Dioxide* 34 mmol/L (20-32); Creatinine* 0.9 mg/dL (0.5-1.5); Estimated Glomerular Filt Rate 61 ml/min; Glucose* 105 mg/dL (60-115)
--- OUTSIDE RECORDS SUMMARY | 2025-08-12 00:14 | XMS_ITS | Clinical Summary ---
Author Organization [facility] Address [address] [place] [address] Care Team Providers Care Residential Service Technician Name Role Phone Hina Dwyer MD Primary Care Provider [phone] Source Comments [facility],non-[facility] Affiliates and Associated Physician Practices is amultiple site organization consisting of ambulatory clinics and hospital sitesin [place], [place], [place] and [place]. This disclosure is being madepursuant to the Care Everywhere program and may not contain all information available regarding this patient. Last updated 18.[facility] Allergies Active Allergy Reactions Criticality Noted Date Comments Amoxicillin-Pot Clavulanate Urticaria Medium 09/03/20 11 (abstracted from [facility] Everywhere) Penicillins 09/03/2011 03/24/93 Sulfa [...] 90 tablet 4 4 Active nystatin (Mycostatin) 273390 UNIT/GM powderIndication s:Cutaneous Candidiasis Apply to buttocks [...] IIV3 SPLIT I M (FLUVIRIN) 06/19/2010,07/23/2008,07/18/2007,2004 INFLUENZA [id number], HISTORIC VACCINE 07/07/2009 INFLUENZA VACCINE 07/24/2002 INFLUENZA [...] and heating? Not hard at all 03/17/2024 [facility] [place] of Occupat ional Health - Occupational Stress [...] patient's age to complete this topic Insurance [id number] MANAGED MEDICARE ADV [facility] MANAGED MEDICARE ADV Advance Directives Documents on File Type Date Recorded Patient Generating Station Mechanic Expl anation Healthcare Power of Mold Puller 04/02/2024 10:49 AM SIGNED: 08/12/2019 Healthcare POA Activation 03/02/2024 11:16 AM DATE SIGNED 02/01/21 Healthcare Power of Mold Puller 03/07/2016 DURABLE POWER OF ASSISTANT GENERAL MANAGER FOR HEALTHCARE Healthcare Power of Mold Puller 11/23/2014 11:24 AM DATE SIGNED 11/11/14 Healthcare Power of Mold Puller 12/04/2011 1:06 PM DATED 11/21/11 * DNR - IF PULSELESS NO CPR, NO SHOCK (Latest Code Status on File) Date Activated Date Inactivated Comments 03/17/2024 4:09 PM 03/20/2024 8:54 PM Question Answer Comments : DO NOT discontinue a ny active orders without asking attending physician. Care Teams Residential Service Technician Relationship Specialty Start Date End Date Hina Dwyer MD [address] [place] [address] [phone] PCP - General Family Medicine 03/05/24
== END 2025-08-11 08:59 | disposition home or self-care (01) ==
LOC: NPINS 08:58
PROVIDERS: PCP Family Medicine; Visit Provider Nurse Practitioner Adult Health
DX: D64.9 Anemia, unspecified (principal); I10 Essential (primary) hypertension
CPT/HCPCS: 80048; 85025

== ENCOUNTER 2025-09-14 13:44 | Outpatient (REF) | payer MEDICARE, SELFPAY ==
[2025-09-14 15:38] LABS: Appearance Urine Slightly Cloudy (Clear)
== END 2025-09-14 13:45 | disposition home or self-care (01) ==
LOC: NPINS 13:44
PROVIDERS: PCP Family Medicine; Visit Provider Nurse Practitioner Adult Health
DX: R31.9 Hematuria, unspecified (principal)
CPT/HCPCS: 81001; 81003; 87086